=== PATIENT | male | born 1960 | race Caucasian/White ===

== ENCOUNTER → 2023-07-31 06:33 | Day surgery (SDC) | payer OTHER, SELFPAY | LOC: GI 06:33 | PROVIDERS: ATTENDING PHYSICIAN Internal Medicine Gastroenterology; FAMILY PHYSICIAN Internal Medicine | DX: Z12.11 Encounter for screening for malignant neoplasm of colon (principal); Z86.010 Personal history of colon polyps; K57.30 Diverticulosis of large intestine without perforation or abscess without bleeding; K64.8 Other hemorrhoids; D12.5 Benign neoplasm of sigmoid colon; K31.89 Other diseases of stomach and duodenum; K76.6 Portal hypertension; I85.10 Secondary esophageal varices without bleeding; T18.2XXA Foreign body in stomach, initial encounter; W44.8XXA Other foreign body entering into or through a natural orifice, initial encounter | CPT/HCPCS: 45385; 45380; 43239; 88305 ==

== ENCOUNTER → 2023-11-10 06:42 | Outpatient (REF) | payer OTHER, SELFPAY | LOC: HWRAD 06:42 | PROVIDERS: ATTENDING PHYSICIAN Internal Medicine Transplant Hepatology; FAMILY PHYSICIAN Internal Medicine | DX: K75.81 Nonalcoholic steatohepatitis (NASH) (principal); K74.60 Unspecified cirrhosis of liver | CPT/HCPCS: 76700 ==

== ENCOUNTER → 2024-04-09 13:18 | Outpatient (REF) | payer OTHER, SELFPAY | LOC: RAD 13:18 | PROVIDERS: ATTENDING PHYSICIAN Hospitalist; FAMILY PHYSICIAN Internal Medicine | DX: M81.0 Age-related osteoporosis without current pathological fracture (principal) | CPT/HCPCS: 77080 ==

== ENCOUNTER 2024-09-13 06:24 | Day surgery (SDC) | payer OTHER, SELFPAY | END 2024-09-13 11:26 | disposition home or self-care (01) | LOC: GI 06:24 | PROVIDERS: ATTENDING PHYSICIAN Internal Medicine Gastroenterology | DX: I85.00 Esophageal varices without bleeding (principal); K76.6 Portal hypertension; K31.89 Other diseases of stomach and duodenum; T18.2XXA Foreign body in stomach, initial encounter; W44.8XXA Other foreign body entering into or through a natural orifice, initial encounter | CPT/HCPCS: 43235 ==

== ENCOUNTER → 2024-10-07 06:37 | Outpatient (REF) | payer OTHER, SELFPAY | LOC: HWRAD 06:37 | PROVIDERS: ATTENDING PHYSICIAN Internal Medicine Gastroenterology; FAMILY PHYSICIAN Internal Medicine; REFERRING PHYSICIAN Internal Medicine Transplant Hepatology | DX: K74.60 Unspecified cirrhosis of liver (principal) | CPT/HCPCS: 76700 ==

== ENCOUNTER 2024-11-27 11:07 | Emergency (ER) | payer OTHER, SELFPAY ==
[2024-11-27 11:11] VITALS: BP 124/78
--- NOTE | 2024-11-27 12:38 | ED.GENMED ---
History of Present Illness
General
Chief Complaint: Skin Surface Trauma
Source: patient
Exam Limitations: none
Time Seen by Provider: 11/27/24 11:55
Nursing documentation reviewed up to this point in time: agreed with
History of Present Illness
History of Present Illness:
64-year-old male presents to the ER with a right forearm laceration. Patient was taking down scaffolding at work when he lacerated his right forearm on a piece of metal. Came to the ER for evaluation. He says that his tetanus is up-to-date. No
other acute injuries or complaints.
Past History
Past History
ED Past Medical History: Other (Questionable hemachromatosis) and Other (Upper GI bleed, esophageal varices, some type of liver disease, celiac disease, cirrhosis of the liver, back pain)
ED Past Surgical History: Orthopedic (Surgical shoulder repair)
Social History
Tobacco: Non-smoker
Alcohol: Occasional
Personal:
Living: with family
Employment: Employed
Family History
Family History: Other
Review of Systems
Review of Systems
All Other Systems: ROS reviewed and negative except as documented in HPI and ROS
Skin: Reports other (Laceration)
Phy Exam
Physical Exam
Physical Exam:
General: Well appearing and non-toxic
HEENT: protecting airway
Neck: appears supple
CV: No evidence of cyanosis
Resp: No accessory muscle use
Abd: Non-distended
Extremities: No deformities
Neuro: Alert
Psych: Normal affect
Skin: Patient has approximately 5 cm somewhat ragged and gaping laceration on the dorsum of the right forearm down to subcutaneous fat�no exposed vessels or muscle/tendon, wound is hemostatic, no foreign body noted on wound inspection
Scores
Heart Failure Risk
Heart Failure Risk Score: Not Applicable
Heart Score for Chest Pain Patients
STEMI patient?: Not applicable
Withdrawal Assessment of Alcohol
Withdrawal Assessment Completed?: Not applicable
Course
Orders/Labs/Results
Orders:
Orders
11/27/24 11:55
Tetanus/Diphth/Acelpertussis [Adacel] 0.5 ml IM .ONCE ONE
11/27/24 12:00
CR Forearm - Right 2 View Urgent
Comment:
Reason For Exam: laceration, eval for FB
Vital Signs
Initial and Last Documented VS:
Initial Vital Signs
Temp Pulse Resp BP Pulse Ox
36.9 C 60 18 124/78 98
11/27/24 11:11 11/27/24 11:11 11/27/24 11:11 11/27/24 11:11 11/27/24 11:11
Last Documented Vital Signs
Temp Pulse Resp BP Pulse Ox
36.9 C 60 18 124/78 98
11/27/24 11:11 11/27/24 11:11 11/27/24 11:11 11/27/24 11:11 11/27/24 12:38
Procedures
Laceration Closure
Right Arm:
Status of Wound: clean
Size of Wound in cm: 5
Description of Wound Edges: ragged
Preparation: cleaned with saline
Anesthesia: 1% Lidocaine with epi
Revision/Debridement: minor revision
Wound exploration: extensive cleaning of contaminated wound
Type of Closure: layered closure
Skin Closure Material: 4-0 nylon (4) and 4-0 chromic gut (2)
Number of sutures: 4
MDM/Problems Addressed
Differential Diagnosis Includes:
Forearm laceration
MDM/Problems Addressed:
64-year-old male presents with a right forearm laceration. Tetanus up-to-date. Sent for an x-ray to rule out signs of foreign body�no foreign body noted. Wound was anesthetized, irrigated and repaired as documented in procedure note. Clean
dressing applied. Stable for discharge, advised regarding follow-up plan for suture removal. We spoke about return precautions. All questions answered.
*Radiology
Radiology exam reviewed: preliminary read by ED provider and radiology read reviewed
*Pulse Oximetry
SaO2: 98
Oxygen Mode of Delivery: Room air
Patient hypoxic: no (98%)
*Critical Care Note
Total Time (30-74mins, 75-104mins- exclusive of procedures): Not Applicable
Data Reviewed
Source: patient
ED Attending Note
-
Portions of this chart may have been created with voice recognition software.� Occasional wrong word or��sound alike� substitutions may have occurred due to the inherent limitations of voice recognition software.
Discharge Plan
Departure
Patient Disposition: Home (Routine Discharge)
Date of Disposition: 11/27/24
Time of Disposition: 12:59
Patient with high blood pressure during this ER visit?: No
Discharge Problem:
Forearm laceration
Instructions: Laceration Repair With Stitches (DC)
Prescriptions:
No Action
nadolol 20 MG tablet
20 mg PO DAILY
amiloride 5 MG tablet
5 mg PO DAILY
hydroxychloroquine 200 MG tablet
200 mg PO DAILY
cholecalciferol (vitamin D3) 2,000 UNITS tablet
2,000 units PO DAILY
esomeprazole magnesium [Nexium 24HR] 20 MG tablet,delayed release (DR/EC)
20 mg PO DAILY
multivitamin with folic acid [Tab-A-Hector] 1 TABLET tablet
1 tab PO DAILY
Medical Marijuana
1 dose PO PRN PRN (Reason: pain)
Rx Instructions:
drops
tramadol 50 MG tablet
50 mg PO Q6HPRN PRN (Reason: mild pain) Qty: 1 0RF
Rx Instructions:
Home medication.
Activity Restrictions/Additional Instructions:
You should have your stitches removed in 7 to 10 days�you can either return to the emergency room, follow-up with your primary doctor, or go to urgent care to have your stitches removed. If you notice any signs of infection you should return to the
emergency room to be evaluated as soon as possible.
Thank you for visiting the Emergency Department at [facility].
1. Please schedule a follow up appointment as directed. Call first thing tomorrow morning to make an appointment.
2. If indicated, please take your medications as instructed and indicated on discharge paperwork.
3. If any of your symptoms do not improve, or persist, or become more severe within 6-12 hours, please return to the emergency department for further care.
4. Please return to the emergency department if you develop a headache, neck pain/stiffness, fever greater than 100.4F, chest pain, shortness of breath, persistent nausea, vomiting, slurred speech, difficulty walking, numbness/tingling, weakness,
signs of infection or any other symptoms that are worrisome to you.
Please call [phone] if you have any questions.
Interventions
Interventions:
*Risk Screen - Suicide Last Done: 11/27/24 11:11
*General Assessment Last Done: 11/27/24 11:11
*Neglect/Abuse Screening Last Done: 11/27/24 11:11
*ED- Fall Risk Assessment Last Done: 11/27/24 11:11
*ED COVID-19 Vaccine History Last Done: 11/27/24 11:11
*Nursing Disposition Last Done: 11/27/24 13:09
ED-Skin Assessment Last Done: 11/27/24 12:45
Discharge Date and Time
Discharge Date/Time: 11/27/24 13:09
Print Language: ALGERIAN
== END 2024-11-27 13:09 | disposition home or self-care (01) ==
LOC: EMR 11:07
PROVIDERS: EMERGENCY PHYSICIAN Emergency Medicine; FAMILY PHYSICIAN Internal Medicine
DX: S51.811A Laceration without foreign body of right forearm, initial encounter (principal); W26.8XXA Contact with other sharp object(s), not elsewhere classified, initial encounter; Y99.0 Civilian activity done for income or pay
CPT/HCPCS: 12032; 99283; 73090; 90715

== ENCOUNTER → 2024-12-27 11:32 | Outpatient (REF) | payer OTHER, SELFPAY | LOC: HWRAD 11:32 | PROVIDERS: ATTENDING PHYSICIAN Internal Medicine Gastroenterology; FAMILY PHYSICIAN Internal Medicine | DX: K29.00 Acute gastritis without bleeding (principal); K90.0 Celiac disease | CPT/HCPCS: 74019 ==

== ENCOUNTER 2025-02-06 06:16 | Day surgery (SDC) | payer OTHER, SELFPAY | END 2025-02-06 10:35 | disposition home or self-care (01) | LOC: GI 06:16 | PROVIDERS: ATTENDING PHYSICIAN Internal Medicine Gastroenterology | DX: K76.6 Portal hypertension (principal); K31.7 Polyp of stomach and duodenum; I85.10 Secondary esophageal varices without bleeding; R11.0 Nausea; I85.00 Esophageal varices without bleeding; K31.89 Other diseases of stomach and duodenum | CPT/HCPCS: 43239; 88305; 88342 ==